=== PATIENT | female | born 1970 | race Caucasian/White ===

== ENCOUNTER → 2023-12-26 18:14 | Outpatient (REF) | payer BC, SELFPAY | LOC: WDC 18:14 | PROVIDERS: ATTENDING PHYSICIAN Obstetrics & Gynecology; FAMILY PHYSICIAN Family Medicine | DX: Z12.31 Encounter for screening mammogram for malignant neoplasm of breast (principal) | CPT/HCPCS: 77063; 77067 ==

== ENCOUNTER 2024-11-27 22:10 | Emergency (ER) | payer BC, SELFPAY ==
[2024-11-27 22:12] VITALS: BP 186/120
[2024-11-27 22:28] LABS: Urine Character Clear (Clear)
[2024-11-27 22:35] LABS: Urine Squamous Cell 16-20 /LPF (Few)
[2024-11-28 01:50] VITALS: BMI 35.6
[2024-11-28] MEDS: NSS 1000 IV (02:04)
[2024-11-28 02:15] LABS: Hematocrit 39.5 % (37.0-47.0); Hemoglobin 13.6 g/dL (12.0-16.0); Mean Corp Hgb Conc. 34.4 g/dL (33.0-37.0); Mean Corpuscular Volume 86.6 fL (81.0-99.0); Nucleated Red Blood Cells % 0 %; Platelet Count 245 10^3/uL (130-400); Red Cell Dist. Width 12.9 % (11.5-14.5)
[2024-11-28 02:44] LABS: ALT (SGPT) 44 U/L (0-35); AST (SGOT) 27 U/L (14-36); Albumin 4.7 g/dl (3.5-5.0); Alkaline Phosphatase 81 U/L (38-126); Blood Urea Nitrogen 16 mg/dl (7-17); Calcium 10.6 mg/dl (8.4-10.2); Carbon Dioxide 25 mmol/L (22-30); Chloride 106 mmol/L (98-107); Estimated Creatinine Clearance > 125 ml/min; Glucose 115 mg/dl (70-99); Lipase 94 U/L (23-300); Potassium 4.5 mmol/L (3.5-5.1); Sodium 139 mmol/L (135-145); Total Protein 7.6 g/dl (6.3-8.2); eGFR > 60.00
[2024-11-28] MEDS: ZOFRAN 4 MG IV (03:01)
[2024-11-28] MEDS: TORADOL 15 MG IV (03:02)
[2024-11-28 03:04] VITALS: BP 159/88
[2024-11-28] MEDS: ZOVIRAX 800 MG PO (03:22)
[2024-11-28] MEDS: LIDOCAINE 4% PATCH 1 PATCH TOPICAL (03:22)
--- NOTE | 2024-11-28 03:48 | ED.GENMED ---
History of Present Illness
General
Chief Complaint: Flank Pain
Time Seen by Provider: 11/28/24 01:42
History of Present Illness
History of Present Illness:
Note:
CHIEF COMPLAINT(S)
Pain and rash on the left side of the back.
HISTORY OF PRESENT ILLNESS
The patient is a 54-year-old female who presented with pain and a rash on the left side of her back. Her symptoms began on Tuesday while sitting in a chair, where she noticed pain in her back, specifically on the left side. The patient mentioned that
she could not find a comfortable position to lie down and that walking aggravated the pain. She has been experiencing a rash, which she described as bizarre, that developed recently. There is a suspicion of shingles, given the presentation of the
vesicular rash along a specific dermatome on the left side without any involvement of the back. The patient has no prior history of shingles. She recently experienced stress related to work events, which could have potentially triggered the outbreak.
PAST MEDICAL AND SURGICAL HISTORY
The patient has a history of being evaluated by urology for hematuria, for which she underwent a computed tomography scan and cystoscopy, both yielding unremarkable results. The etiology was speculated to be nonsteroidal anti-inflammatory drug
(NSAID) use.
CHRONIC MEDICAL CONDITIONS SIGNIFICANTLY AFFECTING CARE
The patient has a tendency to avoid NSAIDs due to prior issues with hematuria, as these medications were considered a potential cause.
MEDICATIONS
The patient mentioned she sometimes takes two proton pump inhibitors daily, one in the morning and one at night, along with an H2 gema at bedtime for comfort.
PHYSICAL EXAM
General: Alert, no acute distress.
Skin: Warm, dry, noted vesicular rash along a left-sided dermatome of the back. Wrapping around to the front
Head: Normocephalic, atraumatic.
Neck: Supple, trachea midline.
Eyes, Ears, Nose, Mouth, and Throat: Oral mucosa moist.
Cardiovascular: Normal peripheral perfusion, no edema.
Respiratory: Respirations are non-labored.
Gastrointestinal: Abdomen nondistended.
Back: Rash consistent with shingles along the dermatome.
Musculoskeletal: Normal range of motion, normal strength.
Neurological: Alert and oriented to person, place, time, and situation. No focal neurological deficit observed.
Psychiatric: Cooperative, appropriate mood and affect.
PLAN
The treatment plan included prescribing an antiviral medication, Valtrex (Valacyclovir), or Acyclovir, with the choice based on the patients insurance coverage. A topical Lidocaine patch is to be used for pain management, avoiding application on
open sores. The patient was advised to have someone inspect her back for application areas. Additionally, a prescription for a corticosteroid and oral Diclofenac (Voltaren) for pain control was considered. The patient was counseled to avoid
[id number] NSAID use due to her history.
DIFFERENTIAL DIAGNOSIS
The differential diagnosis includes, in no particular order and is not limited to:
1. Herpes Zoster (Shingles)
2. Tinea corporis
3. Allergic dermatitis
4. Contact dermatitis
5. Herpes Simplex Virus infection
6. Psoriasis
7. Pityriasis Rosea
8. Dermatomal pain syndrome
9. Radiculopathy
10. Cellulitis
Disposition:
SUMMARY OF ENCOUNTER
The patient, a 54-year-old female, presented with left-sided flank pain and a vesicular rash under her left breast within the same dermatome, consistent with shingles. A CT scan of the abdomen and pelvis showed no abnormalities. She was started on
acyclovir for the management of herpes zoster (shingles). She will also receive a prescription for Lidocaine patches to manage pain and a prescription for Diclofenac (Voltaren).
DISPOSITION
Discharge in improved condition.
ASSESSMENT
The clinical findings are consistent with a diagnosis of herpes zoster (shingles), given the vesicular rash along the dermatome and associated pain. CT imaging ruled out other potential causes of the flank pain.
PLAN
Start antiviral treatment with acyclovir. Prescribe Lidocaine patches for pain management, ensuring application away from open sores. Prescribe Diclofenac (Voltaren) for additional pain relief.
INDEPENDENT REVIEW OF LABS AND INTERPRETATION OF TESTS
My independent review of the CT scan of the abdomen and pelvis is negative for acute pathology.
PATIENT EDUCATION AND COUNSELING
The patient was educated on the nature of herpes zoster, its potential triggers like stress, and the importance of managing stress to prevent future outbreaks. Additionally, guidance was provided on using Lidocaine patches and Diclofenac for pain
control.
FOLLOW-UP INSTRUCTIONS
Follow up with primary care or dermatology if symptoms persist or worsen. Monitor the rash for changes and ensure it is kept covered, especially if the patient returns to work to prevent the spread of infection.
MEDICATION RECONCILIATION
Prescribed acyclovir. Also provided prescriptions for Lidocaine patches and Diclofenac (Voltaren).
MEDICAL DECISION MAKING
- Number and Complexity of Problems Addressed: Chronic conditions affecting care include her history with NSAIDs and hematuria.
- Differential Diagnosis list: Herpes Zoster (Shingles), Tinea corporis, Allergic dermatitis, Contact dermatitis, Herpes Simplex Virus infection, Psoriasis, Pityriasis Rosea, Dermatomal pain syndrome, Radiculopathy, Cellulitis.
- Data:
Category 1: My independent interpretation of a CT scan of the abdomen and pelvis is that there are no abnormalities.
Category 2: Information was derived from patient history.
Category 3: None discussed.
- Risk: Prescription medication was prescribed (Acyclovir, Lidocaine patches, Diclofenac). Consideration of Admission/Observation: Escalation of care including admission/observation was considered given the complexity and risk of the patients
presenting complaint and exam findings. However, ultimately I feel the patient is safe for outpatient management with close follow-up. Reasoning: Work-up reassuring, does not reveal any acute life/organ threatening processes, patients symptoms well
controlled upon reevaluation, reexamination is reassuring, vitals are stable, patient agreeable with discharge, reliable for follow-up.
DIAGNOSIS
Herpes Zoster (Shingles) - ICD-10: B02.9
Phy Exam
Physical Exam
Physical Exam:
.
Course
Orders/Labs/Results
Orders:
Orders
11/27/24 22:21
Urinalysis Urgent
Date Specimen was Collected: 11/27/24
Time Specimen was Collected: 22:16
Urine Microscopic Urgent
Date Specimen was Collected: 11/27/24
Time Specimen was Collected: 22:16
11/28/24 01:42
0.9% Sodium Chloride 1000 ml [Nss] 1,000 ml IV BOLUS
11/28/24 01:43
CT Abd/pel Without Iv Or Oral Urgent
Comment:
Reason For Exam: flank pain
11/28/24 02:03
Complete Blood Count/With Diff Urgent
Comprehensive Metabolic Panel Urgent
Lipase Urgent
11/28/24 02:51
Ketorolac [Toradol] 30 mg .ROUTE .STK-MED ONE
Ondansetron Injectable [Zofran] 4 mg .ROUTE .STK-MED ONE
11/28/24 02:56
Ketorolac [Toradol] 15 mg .ROUTE .STK-MED ONE
11/28/24 03:01
Ketorolac [Toradol] 15 mg IV NOW STA
Ondansetron Injectable [Zofran] 4 mg IV NOW STA
11/28/24 03:14
Acyclovir [Zovirax] 800 mg PO NOW STA
11/28/24 03:19
Lidocaine [Lidocaine 4% Patch] 1 patch .ROUTE .STK-MED ONE
11/28/24 08:00
Lidocaine [Lidocaine 4% Patch] 1 patch TOPICAL DAILY
Apply Lidocaine patch(s) to:: back, left
Abnormal Lab Results
11/27/24 11/28/24
22:21 02:03
Glucose 115 H mg/dl
(70-99)
Calcium 10.6 H mg/dl
(8.4-10.2)
ALT 44 H U/L
(0-35)
Urine Occult Blood 3+ A
(Negative)
Ur Leukocyte Esterase 1+ A
(Negative)
Urine RBC 3-6 A /HPF
(0-2)
Urine Bacteria Few A
(Negative)
11/28/24 02:03
11/28/24 02:03
Vital Signs
Initial and Last Documented VS:
Initial Vital Signs
Temp Pulse Resp BP Pulse Ox
97.8 F 90 20 186/120 98
11/27/24 22:12 11/27/24 22:12 11/27/24 22:12 11/27/24 22:12 11/27/24 22:12
Last Documented Vital Signs
Temp Pulse Resp BP Pulse Ox
97.8 F 83 20 159/88 99
11/27/24 22:12 11/28/24 03:04 11/28/24 03:04 11/28/24 03:04 11/28/24 03:04
*Pulse Oximetry
SaO2: 99
Oxygen Mode of Delivery: Room air
Patient hypoxic: no
*Critical Care Note
Total Time (30-74mins, 75-104mins- exclusive of procedures): Not Applicable
ED Attending Note
-
Portions of this chart may have been created with voice recognition software.� Occasional wrong word or��sound alike� substitutions may have occurred due to the inherent limitations of voice recognition software.
Discharge Plan
Departure
Patient Disposition: Home (Routine Discharge)
Date of Disposition: 11/28/24
Time of Disposition: 03:48
Patient with high blood pressure during this ER visit?: Yes
Condition: Good
Discharge Problem:
Shingles
Instructions: Wound Care (DC), Shingles
Prescriptions:
New
acyclovir 800 mg tablet
800 mg PO 5/D 5 Days Qty: 25 0RF
diclofenac sodium 75 mg tablet,delayed release (DR/EC)
75 mg PO BID PRN (Reason: Pain) Qty: 14 0RF
lidocaine [Lido Federico] 4 % adhesive patch,medicated
1 patch topical BID PRN (Reason: Pain) Qty: 10 0RF
Rx Instructions:
Apply to intact skin only
No Action
montelukast 10 MG tablet
10 mg PO DAILY
loratadine 10 MG tablet
10 mg PO DAILY
diphenhydramine HCl [Banophen] 25 MG capsule
25 mg PO HSPRN PRN (Reason: sleep)
albuterol sulfate 1 PUFF HFA aerosol inhaler
2 puff inhalation PRN PRN (Reason: SOB)
fluticasone propionate 1 SPRAY spray,suspension
1 spray intranasal DAILYPRN PRN (Reason: nasal congestion)
Saccharomyces boulardii 250 MG capsule
250 mg PO DAILY PRN (Reason: Gi symptoms) Qty: 0
cholecalciferol (vitamin D3) 2,000 UNIT tablet
2,000 unit PO DAILY
aspirin 325 MG tablet,delayed release (DR/EC)
325 mg PO DAILY 0RF
acetaminophen [Tylenol Arthritis] 650 MG tablet extended release
650 mg PO QID
sennosides [senna] 1 TABLET tablet
1 tab PO BID 0RF
polyethylene glycol 3350 17 GRAMS powder in packet
17 grams PO DAILY 0RF
tramadol 50 MG tablet
1 - 2 tab PO Q4HPRN PRN (Reason: moderate-severe pain) Qty: 75 0RF
pantoprazole 40 MG tablet,delayed release (DR/EC)
40 mg PO BID 0RF
Rx Instructions:
resume preadmission prevacid
docusate sodium 100 MG capsule
100 mg PO BID 0RF
naproxen 500 MG tablet
500 mg PO BID Qty: 30 0RF
tizanidine 2 MG tablet
2 mg PO TIDPRN PRN (Reason: spasms/pain) Qty: 10 0RF
Referrals:
Angel Palomares MD [Family Provider, Family Practice]
Activity Restrictions/Additional Instructions:
Your prescriptions were sent electronically to the pharmacy that you specified.
Thank You for choosing [facility].
It was a pleasure meeting you and taking part in your care. We hope for your continued healing and wellness.
Please read discharge instructions in their entirety. However, they are for general education and may not describe your exact diagnosis at discharge. Information on your ER visit and medical conditions were discussed with you along with appropriate
follow up information...
If indicated, please take your medications as instructed and indicated on discharge paperwork.
Please schedule a follow up appointment as directed. Call to schedule an appointment
Please return to the emergency department with ANY change in, persisting, or worsening of symptoms. If any of your symptoms do not improve, or persist, or become more severe within 6-12 hours, please return to the emergency department for further
care.
Please return to the emergency department if you develop a headache, neck pain/stiffness, fever greater than 100.4F, chest pain, shortness of breath, persistent nausea, vomiting, slurred speech, difficulty walking, numbness/tingling, weakness, signs
of infection or any other symptoms that are worrisome to you.
If you have any questions or concerns please do not hesitate to call the Hospital at or E-mail me directly at [email or web address]
Interventions
Interventions:
*Risk Screen - Suicide Last Done: 11/27/24 22:12
*Neglect/Abuse Screening Last Done: 11/27/24 22:12
*ED- Fall Risk Assessment Last Done: 11/28/24 02:29
*ED COVID-19 Vaccine History Last Done: 11/28/24 02:29
ME-Lrtqne-Ebfcdwfbfl Assessment Last Done: 11/28/24 01:50
ED-Female Genitourinary Assessment Last Done: 11/28/24 01:50
Discharge Date and Time
Print Language: LAO
== END 2024-11-28 03:58 | disposition home or self-care (01) ==
LOC: EMR 22:10
PROVIDERS: Emergency Medicine; EMERGENCY PHYSICIAN Student in an Organized Health Care Education/Training Program; FAMILY PHYSICIAN Family Medicine
DX: B02.9 Zoster without complications (principal); M54.9 Dorsalgia, unspecified
CPT/HCPCS: 96374; 96375; 96361; 99284; 74176; 80053; 81003; 81015; 83690; 85025

== ENCOUNTER → 2024-12-26 17:36 | Outpatient (REF) | payer BC, SELFPAY | LOC: WDC 17:36 | PROVIDERS: ATTENDING PHYSICIAN Obstetrics & Gynecology; FAMILY PHYSICIAN Family Medicine | DX: Z12.31 Encounter for screening mammogram for malignant neoplasm of breast (principal) | CPT/HCPCS: 77063; 77067 ==